=== PATIENT | female | born 1995 | race African-American/Black ===

== ENCOUNTER 2018-03-27 16:18 | Emergency (ER) | payer MEDICAID, OTHER ==
[~2018-03-27] VITALS: Ht 157.5 cm; Wt 59.0 kg
[~2018-03-27 16:18] MED LIST: DOCU50CA9 PO
[2018-03-27 16:38] LABS: BILIRUBIN,URINE NEGATIVE (NEG); CLARITY,URINE CLEAR; COLOR,URINE YELLOW; NITRITE,URINE NEGATIVE (NEG); PROTEIN,URINE NEGATIVE (NEG-TRACE)
[2018-03-27] MEDS ORDERED: ONDANSETRON PF 4 MG/2 ML VIAL. IV ONE (16:45)
[2018-03-27] MEDS ORDERED: IV NORMAL SALINE 1000ML BAG 1,000 ML IV ONE (16:45)
[2018-03-27 16:55] LABS: BACTERIA,URINE MANY /HPF (0-FEW); RBC,URINE 0 /HPF (0-2); SQUAMOUS EPITHELIAL CELL,UR MOD /LPF
[2018-03-27 16:56] LABS: U PREG PATIENT POSITIVE (NEG)
--- NOTE | 2018-03-27 17:00 | PHYS DOC ---
Past Medical History Past Medical History: Other Additional Past Medical Histor: constipation (MARIA TERESA TORIBIO APRN) Past Surgical History: No Surgical History (MARIA TERESA TORIBIO APRN) Alcohol Use: None Drug Use: None (MARIA TERESA TORIBIO APRN) Adult General Chief Complaint Chief Complaint: DIZZY/LIGHT HEADED HPI HPI Patient is a 22 year old female with no significant medical history who presents today with multiple complaints. Patient states she just found out she is 6 weeks this week, she is a 2 para 1. She states for the last 3 weeks she has had intermittent episodes of lightheadedness, dizziness, and forget fullness. She states the episodes typically occur in the morning. She states she does not recall having similar symptoms when she was last . She states she's also been experiencing nausea and vomiting and this concerned her baby with may not be getting enough nutrients considering she is vomiting. Patient denies any abdominal pain, denies any headache, denies any fever, denies any urgency frequency or dysuria. She states she is from [place] and has an appointment with an MOLD FILLER scheduled. (MARIA TERESA TORIBIO APRN) Review of Systems Review of Systems Constitutional: Denies fever or chills [] Eyes: Denies change in visual acuity, redness, or eye pain [] HENT: Denies nasal congestion or sore throat [] Respiratory: Denies cough or shortness of breath [] Cardiovascular: No additional information not addressed in HPI [] GI: Reports nausea and vomiting in . Denies abdominal pain,bloody stools or diarrhea [] : Denies dysuria or hematuria [] Musculoskeletal: Denies back pain or joint pain [] Integument: Denies rash or skin lesions [] Neurologic: Reports dizziness, lightheadedness, forgetfulness. Denies headache, focal weakness or sensory changes [] All other systems were reviewed and found to be within normal limits, except as documented in this note. (MARIA TERESA TORIBIO APRN) Current Medications Current Medications Current Medications Medications (Trade) Dose Ordered Sig/Yang Start Time Stop Time Status Last Admin Dose Admin Ondansetron HCl (Zofran) 4 mg 1X ONCE 03/27/18 16:45 03/27/18 16:46 DC 03/27/18 17:13 4 MG Sodium Chloride 1,000 ml @ 1,000 mls/hr 1X ONCE 03/27/18 16:45 03/27/18 17:44 DC 03/27/18 17:12 1,000 MLS/HR ([facility]) Allergies Allergies Allergies Coded Allergies Type Severity Reaction Last Updated Verified peanut Allergy Intermediate 03/27/18 No ([facility]) Physical Exam Physical Exam Constitutional: Well developed, well nourished, no acute distress, non-toxic appearance. [] HENT: Normocephalic, atraumatic, bilateral external ears normal, oropharynx moist, no oral exudates, nose normal. [] Eyes: PERRLA, EOMI, conjunctiva normal, no discharge. [] Neck: Normal range of motion, no tenderness, supple, no stridor. [] Cardiovascular:Heart rate regular rhythm, no murmur [] Lungs & Thorax: Bilateral breath sounds clear to auscultation [] Abdomen: Bowel sounds normal, soft, no tenderness, no masses, no pulsatile masses. [] Skin: Warm, dry, no erythema, no rash. [] Back: No tenderness, no CVA tenderness. [] Extremities: No tenderness, no cyanosis, no clubbing, ROM intact, no edema. [] Neurologic: Alert and oriented X 3, normal motor function, normal sensory function, no focal deficits noted. Cranial nerves II through XII intact Psychologic: Affect normal, judgement normal, mood normal. [] (MARIA TERESA TORIBIO APRN) Current Patient Data Vital Signs Vital Signs Date Time Temp Pulse Resp B/P (MAP) Pulse Ox O2 Delivery O2 Flow Rate FiO2 03/27/18 16:25 97.5 106 16 142/82 (102) 100 Room Air 97.5 ([facility]) Lab Values Laboratory Tests Test 03/27/18 16:25 03/27/18 17:01 Urine Collection Type Unknown Urine Color Yellow Urine Clarity Clear Urine pH 6.0 Urine Specific [place] 1.025 Urine Protein Negative mg/dL (NEG-TRACE) Urine Glucose (UA) Negative mg/dL (NEG) Urine Ketones (Stick) Negative mg/dL (NEG) Urine Blood Negative (NEG) Urine Nitrite Negative (NEG) Urine Bilirubin Negative (NEG) Urine Urobilinogen Dipstick 1.0 mg/dL (0.2 mg/dL) Urine Leukocyte Esterase Small (NEG) Urine RBC 0 /HPF (0-2) Urine WBC 11-20 /HPF (0-4) Urine Squamous Epithelial Cells Mod /LPF Urine Bacteria Many /HPF (0-FEW) Urine Mucus Marked /LPF Urine Test Positive (NEG) Urine Opiates Screen Neg (NEG) Urine Methadone Screen Neg (NEG) Urine Barbiturates Neg (NEG) Urine Phencyclidine Screen Neg (NEG) Urine Amphetamine/Methamphetamine Neg (NEG) Urine Benzodiazepines Screen Neg (NEG) Urine Cocaine Screen Neg (NEG) Urine Cannabinoids Screen Neg (NEG) Urine Ethyl Alcohol Neg (NEG) White Blood Count 6.7 x10^3/uL (4.0-11.0) Red Blood Count 4.37 x10^6/uL (3.50-5.40) Hemoglobin 13.5 g/dL (12.0-15.5) Hematocrit 40.2 % (36.0-47.0) Mean Corpuscular Volume 92 fL (79-100) Mean Corpuscular Hemoglobin 31 pg (25-35) Mean Corpuscular Hemoglobin Concent 34 g/dL (31-37) Red Cell Distribution Width 13.0 % (11.5-14.5) Platelet Count 264 x10^3/uL (140-400) Neutrophils (%) (Auto) 65 % (31-73) Lymphocytes (%) (Auto) 27 % (24-48) Monocytes (%) (Auto) 8 % (0-9) Eosinophils (%) (Auto) 0 % (0-3) Basophils (%) (Auto) 1 % (0-3) Neutrophils # (Auto) 4.3 x10^3uL (1.8-7.7) Lymphocytes # (Auto) 1.8 x10^3/uL (1.0-4.8) Monocytes # (Auto) 0.5 x10^3/uL (0.0-1.1) Eosinophils # (Auto) 0.0 x10^3/uL (0.0-0.7) Basophils # (Auto) 0.0 x10^3/uL (0.0-0.2) Maternal Serum HCG Beta Subunit 48706 mIU/mL (0-5) H Sodium Level 139 mmol/L (136-145) Potassium Level 3.5 mmol/L (3.5-5.1) Chloride Level 102 mmol/L (98-107) Carbon Dioxide Level 26 mmol/L (21-32) Anion Gap 11 (6-14) Blood Urea Nitrogen 8 mg/dL (7-20) Creatinine 0.8 mg/dL (0.6-1.0) Estimated GFR (Cockcroft-Gault) 107.6 BUN/Creatinine Ratio 10 (6-20) Glucose Level 106 mg/dL (70-99) H Calcium Level 9.9 mg/dL (8.5-10.1) Total Bilirubin 0.4 mg/dL (0.2-1.0) Aspartate Amino Transferase (AST) 15 U/L (15-37) Alanine Aminotransferase (ALT) 17 U/L (14-59) Alkaline Phosphatase 55 U/L (46-116) Total Protein 8.1 g/dL (6.4-8.2) Albumin 4.0 g/dL (3.4-5.0) Albumin/Globulin Ratio 1.0 (1.0-1.7) Ethyl Alcohol Level < 10 mg/dL (0-10) Laboratory Tests 03/27/18 17:01 Laboratory Tests 03/27/18 17:01 (DERIK MCELROY DO) EKG EKG [] (MARIA TERESA TORIBIO APRN) Radiology/Procedures Radiology/Procedures [] (MARIA TERESA TORIBIO APRN) Course & Med Decision Making Course & Med Decision Making Pertinent Labs and Imaging studies reviewed. (See chart for details) This is a 22-year-old female patient presenting to the ED today with multiple complaints. Patient just found out she is this week. She is complaining of intermittent episodes of dizziness, lightheadedness, and forgetfulness, symptoms began 3 weeks ago. Also complaining of nausea and vomiting since yesterday. Positive urine hCG, beta hCG 57,913, CBC, CMP with no acute findings. Urine analysis is noted for small amount of leukocytes. Patient was given IV fluids, Zofran in the ED. She is feeling better. Discharged with Zofran. Also discharged with cephalexin. Follow-up with her MOLD FILLER next week. (MARIA TERESA TORIBIO APRN) Dragon Disclaimer Dragon Disclaimer This electronic medical record was generated, in whole or in part, using a voice recognition dictation system. (MARIA TERESA TORIBIO APRN) Departure Departure Impression: Primary Impression: Urinary tract infection Additional Impressions: Dizziness Lightheadedness Disposition: 01 HOME, SELF-CARE Condition: STABLE Referrals: YOU GAGNON APRN (PCP) follow up next week Patient Instructions: ABCs of , Nausea and Vomiting, [id number] Additional Instructions: You were evaluated in the emergency room for related symptoms. Your lab work was negative for any acute findings. You do have urinary tract infection, we put you on medications for it, ensure you complete them. Push fluids take zofran as needed for nausea or vomiting. Follow-up with your own doctor in the course of next week. Come back to the ED at any point symptoms worsen. Scripts Cephalexin (CEPHALEXIN) 500 Mg Tablet 1 TAB PO BID, #14 TAB Prov: MARIA TERESA TORIBIO APRN 03/27/18 Ondansetron (ONDANSETRON ODT) 4 Mg Tab.rapdis 1 TAB PO PRN Q6-8HRS, #16 TAB Prov: MARIA TERESA TORIBIO APRN 03/27/18 Problem Qualifiers Primary Impression: Urinary tract infection Urinary tract infection type: site unspecified Hematuria presence: without hematuria Qualified Codes: N39.0 - Urinary tract infection, site not specified Additional Impressions: Weeks of gestation: less than 8 weeks Qualified Codes: Z3A.01 - Less than 8 weeks gestation of MARIA TERESA TORIBIO APRN Mar 27, 2018 17:00 DERIK MCELROY DO Mar 27, 2018 18:29
[2018-03-27 17:04] LABS: BARBITURATES NEG (NEG); BENZODIAZEPINES NEG (NEG); CANNABINOIDS NEG (NEG); COCAINE NEG (NEG); METHADONE NEG (NEG); OPIATES NEG (NEG); PHENCYCLIDINE NEG (NEG)
[2018-03-27 17:10] LABS: AMPHETAMINE/METHAMPHETAMINE NEG (NEG)
[2018-03-27 17:14] LABS: BASO % 1 % (0-3); EOS % 0 % (0-3); HEMATOCRIT 40.2 % (36.0-47.0); HEMOGLOBIN 13.5 g/dL (12.0-15.5); LYMPH # 1.8 x10^3/uL (1.0-4.8); LYMPH % 27 % (24-48); MEAN CORPUSCULAR HEMOGLOBIN 31 pg (25-35); MEAN CORPUSCULAR HGB CONC 34 g/dL (31-37); MEAN CORPUSCULAR VOLUME 92 fL (79-100); MONO # 0.5 x10^3/uL (0.0-1.1); MONO % 8 % (0-9); NEUT # 4.3 x10^3uL (1.8-7.7); NEUT % 65 % (31-73); PLATELET COUNT 264 x10^3/uL (140-400); RED BLOOD COUNT 4.37 x10^6/uL (3.50-5.40); WHITE BLOOD COUNT 6.7 x10^3/uL (4.0-11.0)
[2018-03-27 17:30] LABS: CALCIUM 9.9 mg/dL (8.5-10.1); CREATININE 0.8 mg/dL (0.6-1.0); GFR 107.6; POTASSIUM 3.5 mmol/L (3.5-5.1)
[2018-03-27 17:35] LABS: TOTAL BILIRUBIN 0.4 mg/dL (0.2-1.0); TOTAL PROTEIN 8.1 g/dL (6.4-8.2)
[2018-03-27 18:07] VITALS: BP 115/59
[2018-03-27] MEDS ORDERED: CEPH500T PO (18:21)
[2018-03-27] MEDS ORDERED: ONDA4TAB12 PO (18:21)
== END 2018-03-27 18:30 | disposition home or self-care (01) ==
LOC: ER 16:18
DX: O23.41 Unspecified infection of urinary tract in pregnancy, first trimester (principal); Z3A.01 Less than 8 weeks gestation of pregnancy; R42 Dizziness and giddiness; Z91.010 Allergy to peanuts
CPT/HCPCS: 36415; 80053; 80307; 81001; 81025; 84702; 85025; 96361; 96374; 99283; G0480; J2405; J7030; 87086

== ENCOUNTER 2018-04-29 12:14 | Emergency (ER) | payer OTHER ==
[~2018-04-29] VITALS: Ht 157.5 cm; Wt 63.5 kg
[~2018-04-29 12:14] MED LIST changes: +CEPH500T PO; +ONDA4TAB12 PO
[2018-04-29 13:35] LABS: BILIRUBIN,URINE NEGATIVE (NEG); CLARITY,URINE CLEAR; COLOR,URINE YELLOW; NITRITE,URINE NEGATIVE (NEG); PH,URINE 6.5; PROTEIN,URINE NEGATIVE (NEG-TRACE)
[2018-04-29 13:36] LABS: BASO % 0 % (0-3); EOS % 0 % (0-3); HEMATOCRIT 40.5 % (36.0-47.0); HEMOGLOBIN 13.4 g/dL (12.0-15.5); LYMPH # 1.4 x10^3/uL (1.0-4.8); LYMPH % 19 % (24-48); MEAN CORPUSCULAR HEMOGLOBIN 31 pg (25-35); MEAN CORPUSCULAR HGB CONC 33 g/dL (31-37); MEAN CORPUSCULAR VOLUME 93 fL (79-100); MONO # 0.5 x10^3/uL (0.0-1.1); MONO % 7 % (0-9); NEUT # 5.3 x10^3uL (1.8-7.7); NEUT % 73 % (31-73); PLATELET COUNT 261 x10^3/uL (140-400); RED BLOOD COUNT 4.36 x10^6/uL (3.50-5.40); RED CELL DISTRIBUTION WIDTH 13.2 % (11.5-14.5); WHITE BLOOD COUNT 7.3 x10^3/uL (4.0-11.0)
[2018-04-29 13:49] LABS: SQUAMOUS EPITHELIAL CELL,UR MOD /LPF
[2018-04-29 13:50] LABS: BACTERIA,URINE MANY /HPF (0-FEW); RBC,URINE 0 /HPF (0-2); WBC,URINE 20-40 /HPF (0-4)
[2018-04-29 13:56] LABS: CALCIUM 9.1 mg/dL (8.5-10.1); CREATININE 0.6 mg/dL (0.6-1.0); GFR 149.9; POTASSIUM 3.6 mmol/L (3.5-5.1)
[2018-04-29] MEDS ORDERED: ONDANSETRON PF 4 MG/2 ML VIAL. IV ONE (14:00)
[2018-04-29] MEDS ORDERED: IV NORMAL SALINE 1000ML BAG 1,000 ML IV ONE (14:00)
[2018-04-29] MEDS ORDERED: CEPH250S30 PO (15:28)
--- NOTE | 2018-04-29 15:28 | PHYS DOC ---
Past Medical History Past Medical History: No Pertinent History, Other Additional Past Medical Histor: constipation Past Surgical History: No Surgical History Alcohol Use: None Drug Use: None Adult General Chief Complaint Chief Complaint: VOMITING IN HPI HPI Patient is a 22 year old female who presents to the emergency room today with complaints of bilateral ear pain, nausea, and vomiting for the last 24 hours. patient states she is currently 12 weeks .she reports that she has vomited at least six times in the last 24hours and has not been able to keep any food down. Patient states she has been able to take small sips of liquids. She denies any fever, abdominal pain, vaginal bleeding, dizziness, diarrhea, dysuria, or back pain. she states that the pain in her ears is worse on the left , she denies any drainage, or bleeding from her ears. Patient currently he rates her pain as 7/10 on the pain scale, she states there are no alleviating or aggravating factors. Review of Systems Review of Systems Constitutional: Denies fever or chills [] Eyes: Denies changes HENT: Denies nasal congestion or sore throat; see HPI [] Respiratory: Denies cough or shortness of breath [] Cardiovascular: No additional information not addressed in HPI [] GI: Denies abdominal pain, or diarrhea; see HPI : Denies dysuria or hematuria [] Musculoskeletal: Denies back pain or joint pain [] Integument: Denies rash or skin lesions [] Neurologic: Denies headache complete systems were reviewed and found to be within normal limits, except as documented in this note. Current Medications Current Medications Current Medications Medications (Trade) Dose Ordered Sig/[place] Start Time Stop Time Status Last Admin Dose Admin Ondansetron HCl (Zofran) 4 mg 1X ONCE 04/29/18 14:00 04/29/18 14:01 DC 04/29/18 14:24 4 MG Sodium Chloride 1,000 ml @ 1,000 mls/hr 1X ONCE 04/29/18 14:00 04/29/18 14:59 DC 04/29/18 14:00 1,000 MLS/HR Allergies Allergies Allergies Coded Allergies Type Severity Reaction Last Updated Verified peanut Allergy Intermediate 03/27/18 No Physical Exam Physical Exam Constitutional: Well developed, well nourished, no acute distress, ill appearance. [] HENT: Normocephalic, atraumatic, bilateral external ears normal, left TM normal , erythema and swelling noted of external canal consistent with otitis externa, right TM normal, posterior pharynx normal, oropharynx moist, no oral exudates, nose normal. [] Eyes: conjunctiva normal, no discharge. [] Neck: Normal range of motion, no tenderness, supple, no stridor. [] Cardiovascular:Heart rate regular rhythm, no murmur [] Lungs & Thorax: Bilateral breath sounds clear to auscultation [] abdomen: soft, nontender, active bowel sounds times four quadrants, no rebound, no guarding, no pulsatile masses Skin: Warm, dry, no erythema, no rash. [] Back: No CVA tenderness. [] Extremities: No cyanosis, ROM intact, Neurologic: Alert and oriented X 3, no focal deficits noted. [] Psychologic: Affect normal, judgement normal, mood normal. [] Current Patient Data Vital Signs Vital Signs Date Time Temp Pulse Resp B/P (MAP) Pulse Ox O2 Delivery O2 Flow Rate FiO2 04/29/18 15:50 93 16 119/69 (86) 100 Room Air 04/29/18 12:40 97.5 97.5 Lab Values Laboratory Tests Test 04/29/18 13:21 04/29/18 13:29 White Blood Count 7.3 x10^3/uL (4.0-11.0) Red Blood Count 4.36 x10^6/uL (3.50-5.40) Hemoglobin 13.4 g/dL (12.0-15.5) Hematocrit 40.5 % (36.0-47.0) Mean Corpuscular Volume 93 fL (79-100) Mean Corpuscular Hemoglobin 31 pg (25-35) Mean Corpuscular Hemoglobin Concent 33 g/dL (31-37) Red Cell Distribution Width 13.2 % (11.5-14.5) Platelet Count 261 x10^3/uL (140-400) Neutrophils (%) (Auto) 73 % (31-73) Lymphocytes (%) (Auto) 19 % (24-48) L Monocytes (%) (Auto) 7 % (0-9) Eosinophils (%) (Auto) 0 % (0-3) Basophils (%) (Auto) 0 % (0-3) Neutrophils # (Auto) 5.3 x10^3uL (1.8-7.7) Lymphocytes # (Auto) 1.4 x10^3/uL (1.0-4.8) Monocytes # (Auto) 0.5 x10^3/uL (0.0-1.1) Eosinophils # (Auto) 0.0 x10^3/uL (0.0-0.7) Basophils # (Auto) 0.0 x10^3/uL (0.0-0.2) Urine Collection Type Unknown Urine Color Yellow Urine Clarity Clear Urine pH 6.5 Urine Specific [place] 1.025 Urine Protein Negative mg/dL (NEG-TRACE) Urine Glucose (UA) Negative mg/dL (NEG) Urine Ketones (Stick) 15 mg/dL (NEG) Urine Blood Negative (NEG) Urine Nitrite Negative (NEG) Urine Bilirubin Negative (NEG) Urine Urobilinogen Dipstick 1.0 mg/dL (0.2 mg/dL) Urine Leukocyte Esterase Moderate (NEG) Urine RBC 0 /HPF (0-2) Urine WBC 20-40 /HPF (0-4) Urine Squamous Epithelial Cells Mod /LPF Urine Bacteria Many /HPF (0-FEW) Urine Mucus Marked /LPF Sodium Level 136 mmol/L (136-145) Potassium Level 3.6 mmol/L (3.5-5.1) Chloride Level 102 mmol/L (98-107) Carbon Dioxide Level 25 mmol/L (21-32) Anion Gap 9 (6-14) Blood Urea Nitrogen 7 mg/dL (7-20) Creatinine 0.6 mg/dL (0.6-1.0) Estimated GFR (Cockcroft-Gault) 149.9 Glucose Level 86 mg/dL (70-99) Calcium Level 9.1 mg/dL (8.5-10.1) POC Urine HCG, Qualitative Hcg positive (Negative) Laboratory Tests 04/29/18 13:21 Laboratory Tests 04/29/18 13:21 Microbiology 04/29/18 Urine Culture - Final, Complete 04/29/18 Urine Culture Result 1 (DONTE) - Final, Complete EKG EKG [] Radiology/Procedures Radiology/Procedures [] Course & Med Decision Making Course & Med Decision Making Pertinent Labs and Imaging studies reviewed. (See chart for details) dx: urinary tract infection, vomiting in , left otitis externa UA showed urinary tract infection. patient was given a liter of fluid, and 4 mg of zofran in the emergency department, she reported feeling better after these medications. Prescriptions written for keflex, and ofloxacin. Avoid bladder irritants such as caffeine, carbonation, and spicy foods. Increase clear fluids, advance diet as tolerated. Follow up with your primary care doctor if symptoms persist, return to the ER if symptoms worsen. Pt verbalized an understanding of discharge, medications, follow-up, home care, and return to ED precautions, was in agreement with POC. [place] Disclaimer Dragon Disclaimer This electronic medical record was generated, in whole or in part, using a voice recognition dictation system. Departure Departure Impression: Primary Impression: Urinary tract infection Additional Impressions: Nausea and vomiting in prior to 22 weeks gestation Otitis externa Disposition: 01 HOME, SELF-CARE Condition: STABLE Referrals: YOU SÁNCHEZ MD (PCP) Patient Instructions: Diet - Hyperemesis Gravidarum, Otitis Externa, Easy-to- Read, - Urinary Tract Infection Additional Instructions: Fill prescription(s) and use as directed. Avoid bladder irritants such as caffeine, carbonation, and spicy foods. Increase clear fluids, advance diet as tolerated. Follow up with your primary care doctor if symptoms persist, return to the ER if symptoms worsen. Scripts Ofloxacin (OFLOXACIN) 5 Ml Drops 5 DROP LEFT EAR BID for 5 Days, #10 ML 0 Refills Prov: THO SHEETS CHECKER [employer]DS 04/29/18 Cephalexin (CEPHALEXIN) 250 Mg/5 Ml Susp.recon 10 ML PO BID for 7 Days, #140 ML 0 Refills Prov: THO [employer]ER [employer] 04/29/18 Problem Qualifiers Primary Impression: Urinary tract infection Urinary tract infection type: site unspecified Hematuria presence: without hematuria Qualified Codes: N39.0 - Urinary tract infection, site not specified Additional Impressions: Otitis externa Otitis externa type: unspecified type Chronicity: acute Laterality: left Qualified Codes: H60.502 - Unspecified acute noninfective otitis externa, left ear TOH [employer] Apr 29, 2018 15:28
[2018-04-29 15:50] VITALS: BP 119/69
[2018-04-29] MEDS ORDERED: OFLO5DRO7 LEFT EAR (15:50)
== END 2018-04-29 15:52 | disposition home or self-care (01) ==
LOC: ER 12:14
DX: O21.9 Vomiting of pregnancy, unspecified (principal); H60.502 Unspecified acute noninfective otitis externa, left ear; N39.0 Urinary tract infection, site not specified; Z3A.12 12 weeks gestation of pregnancy; Z91.010 Allergy to peanuts
CPT/HCPCS: 36415; 80048; 81001; 81025; 85025; 87086; 96361; 96374; 99284; J2405; J7030